=== PATIENT | male | born 2000 ===

== ENCOUNTER 2022-04-10 08:11 | Outpatient (CLI) | payer BC | END 2022-04-10 08:12 | disposition home or self-care (01) | LOC: LABHHL 08:11 | PROVIDERS: ATTEND Otolaryngology Otology & Neurotology | DX: J32.2 Chronic ethmoidal sinusitis (principal); J32.0 Chronic maxillary sinusitis; J34.3 Hypertrophy of nasal turbinates | CPT/HCPCS: 88305; 88311 ==